=== PATIENT | female | born 1950 | race Caucasian/White ===

== ENCOUNTER → 2016-07-10 | Outpatient (CLI) | payer OTHER, BC ==
[~2016-07-10] MED LIST: ACET-1487 PO; ANAS1TAB19 PO; ASPI-232 PO; CALC-354 PO; CEPH500C2 PO; CRS10 PO; DRY EYE DROPS OPB; GLUC500C5 PO; HYDR-5688 PO; MULTTAB45 PO; OMEGCAP2 PO
--- NOTE | 2016-07-10 16:18 | MAMMOGRAPHY REPORT ---
BILATERAL DIGITAL SCREENING MAMMOGRAM WITH CAD: 07/10/2016 CLINICAL HISTORY: Routine screening examination. TECHNIQUE: Bilateral CC and MLO views were obtained. Current study was also evaluated with a Comput er Aided Detection (CAD) system. COMPARISON: Comparison is made to exams dated: 07/05/2015 mammogram, 07/01/2014 mammogram, 06/30/2013 mammogram, and 06/26/2012 mammogram - [facility]. BREAST COMPOSITION: The tissue of both breasts is heterogeneously dense, which may obscure small ma sses. FINDINGS: There is a possible cluster of microcalcifications in the 6:00 posterior right breast, fo r which additional spot magnification views are recommended. There is evidence of prior surgery within the left breast. No other suspicious mass, architectural d istortion or cluster of microcalcifications is seen. IMPRESSION: ACR BI-RADS CATEGORY 0: INCOMPLETE EVALUATION: NEED ADDITIONAL IMAGING EVALUATION The possible cluster of microcalcifications in the right 6:00 breast need additional evaluation. The patient will be called to schedule an appointment. Approximately 10% of breast cancers are not detected with mammography. A negative mammographic repor t should not delay biopsy if a clinically suggestive mass is present. Whitney Sewell M.D. ay/:07/10/2016 13:45:05 Insert Operator: Amelia GANN(R)(Jeff), [facility] letter sent: Addl Imaging 0 BI-RADS Code: ACR BI-RADS Category 0: Incomplete Evaluation: Need Additional Imaging Evaluation
== END | disposition home or self-care (01) ==
LOC: C.MAMM 10:57
PROVIDERS: ATTEND Internal Medicine Geriatric Medicine
DX: Z12.31 Encounter for screening mammogram for malignant neoplasm of breast (principal); R92.0 Mammographic microcalcification found on diagnostic imaging of breast

== ENCOUNTER → 2016-07-18 | Outpatient (CLI) | payer OTHER, BC ==
--- NOTE | 2016-07-18 12:47 | MAMMOGRAPHY REPORT ---
UNILATERAL RIGHT DIGITAL DIAGNOSTIC MAMMOGRAM: 07/18/2016 CLINICAL HISTORY: 66-year-old woman called back from screening mammography for a possible cluster of microcalcifications in the 6:00 right breast. Patient reported a history of previous benign surgic al excisional biopsy in the left breast. TECHNIQUE: Spot magnification right CC and ML views were obtained. COMPARISON: Comparison is made to exams dated: 07/10/2016 mammogram, 07/01/2014 mammogram, 06/26/2012 mammogram, 06/30/2013 mammogram, and 07/05/2015 mammogram - [facility]. BREAST COMPOSITION: The tissue of the right breast is heterogeneously dense, which may obscure smal l masses. FINDINGS: There is a 5 mm grouping of microcalcifications in the 6:00 posterior right breast that c ontains a larger coarser calcification and very faint amorphous punctate microcalcifications traveli ng in a linear distribution. The fainter calcifications may have been present on prior mammograms d ating back to , but the larger calcification is new. Therefore, the cluster is indetermina te, warranting further evaluation with tissue sampling. No obvious associated asymmetry, mass or ar chitectural distortion. No other suspicious cluster or grouping of microcalcifications is seen. IMPRESSION: ACR BI-RADS CATEGORY 4B: INTERMEDIATE SUSPICION FOR MALIGNANCY Right breast stereotactic guided biopsy is recommended for a cluster of coarse and faint punctate am orphous microcalcifications in the 6:00 right breast. These results and recommendations were discussed with the patient at the time of the exam. She tent atively scheduled the biopsy prior to leaving our department. Approximately 10% of breast cancers are not detected with mammography. A negative mammographic repor t should not delay biopsy if a clinically suggestive mass is present. Whitney Sewell M.D. ay/:07/18/2016 12:31:01 Sheet Rock Layer: Kindra GANN(Veena)(Jeff), [facility] letter sent: Abnormal 4/5 BI-RADS Code: ACR BI-RADS Category 4B: Intermediate Suspicion For Malignancy
== END | disposition home or self-care (01) ==
LOC: C.MAMM 10:52
PROVIDERS: ATTEND Internal Medicine Geriatric Medicine
DX: R92.0 Mammographic microcalcification found on diagnostic imaging of breast (principal)

== ENCOUNTER → 2016-08-15 | Outpatient (CLI) | payer OTHER, BC ==
--- NOTE | 2016-08-15 11:46 | Discharge Instructions ---
Discharge Instructions Procedure Procedure Date: Aug 15, 2016. Reason for visit: Right Calcifications. Discharge Discharge Date: Aug 15, 2016. Discharge Diagnosis: post right breast stereotactic guided biopsy Medications Restart Stopped Medication(s): May restart Aspirin tomorrow as long as not bleeding through bandages Instructions Activity Recommendations: Additional Limitations (see below) Return to School/Work: no limitations Recommended Home Diet: No Limitations Provider Instructions: ACTIVITY RECOMMENDATIONS: * No lifting, pushing, pulling or exercising the affected side for three days. RETURN TO SCHOOL/WORK: * You may return to work/school after the procedure, but do not perform any strenuous activities for 24 to 48 hours. MEDICATIONS: * Tylenol (two 325 mg) every four to six hours if needed for mild pain (if not allergic to Tylenol). DIET: * Resume previous diet. SPECIAL CARE INSTRUCTIONS: * Keep biopsy site dry for 24 hours. May shower after 24 hours, but do not soak (bathe) incision. * May remove Tegaderm (plastic patch) tomorrow AFTER showering. * Leave the steri-strips on for one week. Allow the steri-strips to fall off by themselves. If not off after one week, you may remove them. You may place a Bandaid crosswise over the strips, if desired. * Apply ice 10 minutes on and 10 minutes off as needed. * Wear a bra at bedtime to sleep more comfortably for 2-3 days. * Your referring physician should have the results after approximately 5 to 7 business days. * Call for unusual bleeding, fever, drainage, etc or if you have any questions call [phone] during normal business hours or after hours call Dr Sewell, . FOLLOW UP VISIT: Follow-up with Referring Physician as scheduled. Allergies Coded Allergies: Risedronate (Verified Allergy, Severe, NUMBNESS IN HANDS, 10/27/13) Fernando Spain Recommendations: Call your doctor if: * Temperature above 101 degrees * Pain not relieved by pain medicine ordered * There is increased drainage or redness from any incision * You have any unanswered questions or concerns. Your Doctors Instructions noted above were prepared by provider Whitney Sewell. Patient Signature Section: Patient Instructions Signature Page Nahomy Larson Patient (or Guardian) Signature/Date: I have read and understand the instructions given to me by my caregivers. Caregiver/RN/Doctor Signature/Date: The above-named patient and/or guardian has received patient instructions on this date. + Original Patient Signature Page (only) stays with chart. Please make copy for patient.
--- NOTE | 2016-08-15 12:37 | MAMMOGRAPHY REPORT ---
THIS REPORT HAS BEEN AMENDED. STEREOTACTIC GUIDED BIOPSY RIGHT BREAST: 08/15/2016 CLINICAL HISTORY: Indeterminate cluster of faint punctate and round microcalcifications in the 6:00 posterior right breast. Patient presents for stereotactic biopsy. COMPARISON: Comparison is made to exams dated: 07/18/2016 mammogram, 07/05/2015 mammogram, 07/01/2014 m ammogram, 06/30/2013 mammogram, and 06/26/2012 mammogram - [facility]. PATIENT CONSENT: After explaining the risks, benefits and alternatives of the procedure to the patie nt, informed consent was obtained both verbally and in writing. Specific risks include: Bleeding, i nfection, puncture of adjacent structure, nontarget biopsy, sampling error, metal allergy and medica tion reaction. PROCEDURE DESCRIPTION: A time-out was performed and the right breast was confirmed as the site of bi opsy. The patient was placed prone on the stereotactic biopsy table and the breast was placed in CC from below compression. A health outreach worker image was obtained that demonstrated the clustered microcalcificatio ns in question. They are amenable to sterotactic biopsy. Then +15 and -15 stereo pair images were obtained. The calcifications were targeted utilizing the coordinates obtained by the computer. The skin was prepped with Betadine. 1% Lidocaine with and without epinipherine was administered as loca l anesthesia. A small skin incision was made. Through the incision, the needle was inserted to the depth determined by the computer. 10 samples were obtained using a [employer] Seveniva 9-gauge vacuum-assist ed biopsy device. The specimen radiograph demonstrated several floor representative punctate microcalcific ations, therefore, a metallic marker was placed at the biopsy site. There was no immediate complicat ion. Hemostasis was achieved after several minutes of manual compression. The samples were sent to pathology in an appropriately labeled container. Postprocedure CC and ML views of the right breast were obtained. There is a new dumbbell-shaped met allic biopsy marker and no significant hematoma in the 6:00 posterior breast, at the site of the bio psied clustered microcalcifications in question. IMPRESSION: STEREOTACTIC GUIDED BIOPSY Status post right breast stereotactic guided biopsy of a cluster of indeterminate microcalcification s in the 6:00 axis. A biopsy marker clip was placed at the site. The patient will receive notification of the biopsy results from referring physician. Whitney Sewell M.D. ay/:08/15/2016 12:10:22 Environmental Protection Officer: Ksenia GANN(Veena)(M), [facility] AMENDMENT: 08/23/2016 Whitney Sewell M.D. 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 The p athology results are concordant with the imaging appearance. Given the relatively dense breasts and very faint nature of the biopsy proven DCIS, with consider further evaluation with a bilateral tran st MRI to assess extent of disease prior to definitive surgical management.
--- NOTE | 2016-08-15 12:37 | MAMMOGRAPHY REPORT ---
UNILATERAL RIGHT DIGITAL DIAGNOSTIC MAMMOGRAM: 08/15/2016 CLINICAL HISTORY: Status post right breast stereotactic biopsy of a cluster of faint punctate microc alcifications in the 6:00 posterior breast. Please refer to the report from right breast stereotactic biopsy performed at the same time for full detail. IMPRESSION: POST PROCEDURE IMAGING FOR MARKER PLACEMENT Please refer to the report from right breast stereotactic biopsy performed at the same time for full detail. Approximately 10% of breast cancers are not detected with mammography. A negative mammographic repor t should not delay biopsy if a clinically suggestive mass is present. Whitney Sewell M.D. ay/:08/15/2016 11:09:09 Acoustical Logging Engineer: Ksenia GANN(R)(M), [facility] BI-RADS Code: Post Procedure Imaging For Marker Placement
== END | disposition home or self-care (01) ==
LOC: C.MAMM 10:00
PROVIDERS: ATTEND Internal Medicine Geriatric Medicine
DX: D05.11 Intraductal carcinoma in situ of right breast (principal)

== ENCOUNTER → 2016-08-24 | Outpatient (CLI) | payer OTHER, BC ==
[2016-08-24 16:59] LABS: CREATININE 0.65 mg/dl (0.60-1.20)
== END | disposition home or self-care (01) ==
LOC: C.LABBC 13:29
PROVIDERS: ATTEND Internal Medicine Geriatric Medicine
DX: Z00.00 Encounter for general adult medical examination without abnormal findings (principal)

== ENCOUNTER → 2016-08-30 | Outpatient (CLI) | payer OTHER, BC ==
[~2016-08-30] MED LIST changes: +GADAVIST IV PRN
--- NOTE | 2016-09-03 13:55 | MAMMOGRAPHY REPORT ---
BREAST MRI OF BOTH BREASTS : 08/30/2016 CLINICAL HISTORY: Recent stereotactic biopsy of right 6:00 breast calcifications which yielded DCIS. COMPARISON: Comparison is made to exams dated: 08/15/2016 mammogram, 07/05/2015 mammogram, 07/01/2014 m ammogram, 06/30/2013 mammogram, and 06/26/2012 mammogram - [facility]. Technique: The patient was placed prone in a dedicated breast imaging coil. Precontrast axial T1-we ighted, axial T2-weighted fat saturation, and axial T1-weighted fat saturation images were obtained. After the administration of Gadavist IV contrast, sequential T1-weighted fat saturation images wer e obtained. Subtraction images were obtained of the dynamic contrast enhanced sequences, and 3-D re formations were performed. The zhouwu software was used for kinetic analysis. Findings: Right breast: There is mild background parenchymal enhancement. Susceptibility artifact is seen in the right 6:00 breast from a biopsy marker clip from recent stereotactic biopsy which yielded DCIS. There is mini mal enhancement abutting the biopsy marker clip measuring approximately 4 mm, with mild enhancement extending slightly superior to the biopsy site along the biopsy tract. Given that the enhancement f ollows the biopsy tract and is not a ductal distribution, it likely represents postbiopsy changes. (series 41999 image 83). The remainder of the right breast demonstrates no suspicious enhancing mas ses or areas of abnormal non-mass enhancement. Left breast: There is mild background parenchymal enhancement. There is an enhancing 9 mm mass seen within the left breast at approximately 8:00 anteriorly, which demonstrates corresponding T2 hyperi ntensity. The mass demonstrates benign type persistent kinetics. In retrospect, the mass is stable on prior CC mammogram views dating back to 2006, and given the long-term stability, the mass is nyasia ign. The remainder of the left breast is negative, without suspicious enhancing masses or areas of abnormal non-mass enhancement. There is no evidence of axillary adenopathy. The chest wall structures are negative. There is a ci rcumscribed T2 hyperintense 3.2 x 3.0 cm mass in the left upper abdomen, which does not clearly demo nstrate enhancement (series 4 image 57). This may represent a hepatic cyst although the area is not well-visualized on this exam and the lesion is not clearly seen to be within the liver. A few othe r smaller T2 hyperintense, nonenhancing masses are also seen within the right upper abdomen, one ed suring 11 mm and one measuring 7 mm, which likely represent hepatic cysts (series 4 image 57 and 54) . Recommend abdominal ultrasound for further evaluation. IMPRESSION: ACR BI-RADS CATEGORY 6: KNOWN BIOPSY PROVEN MALIGNANCY 1. Minimal enhancement at the biopsy site and extending slightly superiorly along the biopsy tract, at the site of recent biopsy in the right 6:00 breast which yielded DCIS. Given that the enhanceme nt is located along the biopsy tract, it likely represents postbiopsy changes. Surgical excision is recommended. 2. The remainder of both breasts demonstrate no evidence of malignancy. Enhancing 9 mm mass within the left 8:00 anterior breast, which is stable on mammograms dating back to 2006 and is therefore b enign. 3. Cystic-appearing 3.2 cm mass in the left upper abdomen, which could represent a hepatic cyst alt roger is not well evaluated on this exam and is not clearly seen to be within the liver. A few othe r smaller similar appearing masses are seen within the right abdomen. Recommend additional imaging evaluation with abdominal ultrasound. Kesha Duarte M.D. ah/:08/31/2016 16:44:07 Boy'S Adviser: head cd reactor operator, [facility] letter sent: Birad 6 BI-RADS Code: ACR BI-RADS Category 6: Known Biopsy Proven Malignancy
== END | disposition home or self-care (01) ==
LOC: C.MRI 15:01
PROVIDERS: ATTEND Internal Medicine Geriatric Medicine
DX: D05.10 Intraductal carcinoma in situ of unspecified breast (principal); R92.8 Other abnormal and inconclusive findings on diagnostic imaging of breast; N63 Unspecified lump in breast; R93.5 Abnormal findings on diagnostic imaging of other abdominal regions, including retroperitoneum

== ENCOUNTER → 2016-09-05 | Outpatient (CLI) | payer OTHER, BC ==
[~2016-09-05] MED LIST changes: -GADAVIST IV PRN
--- NOTE | 2016-09-05 11:38 | DIAGNOSTIC IMAGING REPORT ---
ABDOMINAL ULTRASOUND, RIGHT UPPER QUADRANT HISTORY: Abnormal breast MRI. Evaluate for hepatic lesion.. COMPARISON: Breast MRI 08/30/2016. FINDINGS: Pancreas: The pancreas demonstrates a normal echotexture. Liver: There are few scattered hepatic cysts. Dominant cyst within the left hepatic lobe measures 3.1 cm and demonstrates a septation. Largest right hepatic lobe cyst measures 1.5 cm. Gallbladder: No gallbladder wall thickening. No gallstones. CBD: 5 mm. Right kidney: No hydronephrosis. IMPRESSION: Hepatic cysts. Electronically signed by: Tj Dominguez M.D. 09/05/2016 11:37 AM Dictated Date/Time: 09/05/2016 11:34 AM
== END | disposition home or self-care (01) ==
LOC: C.ULTR 10:19
PROVIDERS: ATTEND Internal Medicine Geriatric Medicine
DX: R93.8 Abnormal findings on diagnostic imaging of other specified body structures (principal); K76.89 Other specified diseases of liver

== ENCOUNTER 2016-09-24 08:02 | Observation (INO) | payer OTHER, BC ==
--- NOTE | 2016-09-10 12:10 | PAT Medication Instructions ---
Service Date Sep 10, 2016. Current Home Medication List Acetaminophen (Tylenol Arthritis Ext Rel), 1,300 MG PO DAILY PRN for Pain Aspirin (Aspir-81), 81 MG PO QPM Calcium Carbonate-Cholecalcife (Caltrate 600+D), 1 TABS PO BID Glucosamine-Chondroitin (Glucosamine-Chondroitin D), 1 CAP PO BID Multiple Vitamin (Multiple Vitamin), 1 TAB PO QAM Alicia-3 Fatty Acids (Fish Oil), 1,000 MG PO BID Rosuvastatin Calcium (Crestor), 10 MG PO QPM [Dry Eye Drops ], 1 DROP OPB QAM Medication Instructions For Your Scheduled Surgery - Hold the following medications 2 weeks prior to surgery: Alicia-3 Fatty Acids (Fish Oil), 1,000 MG PO BID Glucosamine-Chondroitin (Glucosamine-Chondroitin D), 1 CAP PO BID - Hold the following medications the morning of surgery: Multiple Vitamin (Multiple Vitamin), 1 TAB PO QAM Calcium Carbonate-Cholecalcife (Caltrate 600+D), 1 TABS PO BID - Take the following medications the morning of surgery with a sip of water OTHERWISE NOTHING TO EAT OR DRINK AFTER MIDNIGHT: [Dry Eye Drops ], 1 DROP OPB QAM Acetaminophen (Tylenol Arthritis Ext Rel), 1,300 MG PO DAILY PRN for Pain (may take if needed up to 4 hours prior to surgery) - Take the following medications as scheduled the night before surgery: Aspirin (Aspir-81), 81 MG PO QPM Acetaminophen (Tylenol Arthritis Ext Rel), 1,300 MG PO DAILY PRN for Pain Rosuvastatin Calcium (Crestor), 10 MG PO QPM Calcium Carbonate-Cholecalcife (Caltrate 600+D), 1 TABS PO BID If you have any questions please call us at [phone] or [phone] or [phone]
[2016-09-10 12:42] LABS: BASO % 0.7 %; BASO ABS # 0.04 K/uL (0-0.2); COMPLETE YES; EOS % 2.9 %; HEMATOCRIT 40.7 % (37-47); IG% 0.2 %; LYMPH % 22.7 %; LYMPH ABS # 1.35 K/uL (1.2-3.4); MEAN CELL VOLUME 88.1 fL (80-100); MEAN CORPUSCULAR HEMOGLOBIN 31.8 pg (25-34); MEAN CORPUSCULAR HGB CONC 36.1 g/dl (32-36); MEAN PLATELET VOLUME 8.9 fL (7.4-10.4); MONO % 8.9 %; NEUT % 64.6 %; PLATELET COUNT 253 K/uL (130-400); RED BLOOD COUNT 4.62 M/uL (4.2-5.4); WHITE BLOOD COUNT 5.94 K/uL (4.8-10.8)
[2016-09-10 12:54] LABS: BUN/CREATININE RATIO 29.3 (10-20); CALCIUM 9.6 mg/dl (8.5-10.1); CREATININE 0.73 mg/dl (0.60-1.20); POTASSIUM 4.4 mmol/L (3.5-5.1)
[2016-09-24] VITALS (7 sets, daily range): BP systolic 131–158; BP diastolic 66–91; PULSE 61–82; TEMP 36.4–36.9; O2SAT 94–100; Ht 154.9 cm; Wt 72.2 kg
[~2016-09-24] VITALS: Ht 154.9 cm; Wt 72.2 kg
[~2016-09-24 08:02] MED LIST changes: -ANAS1TAB19 PO; +CEFAZOLIN 2000 MG/60 ML D5W IV SCH; -CEPH500C2 PO; -HYDR-5688 PO; +LACTATED RINGER'S 1000ML 1,000 ML IV SCH
[2016-09-24] MEDS ORDERED: FENTANYL CITRATE INJ 50 MCG/1 ML 2 ML VIAL ONE (08:49)
[2016-09-24] MEDS ORDERED: MEPERIDINE HCL 25 MG/ML CARP IV PRN (09:45)
[2016-09-24] MEDS ORDERED: HYDROmorphone INJ 2 MG/ML SYR/VIAL IV PRN (09:45)
[2016-09-24] MEDS ORDERED: EpHEDrine SULFATE INJ 50 MG/ML AMP IV PRN (09:45)
[2016-09-24] MEDS ORDERED: PHENYLEPHRINE 100MCG/ML 5ML SYR IV PRN (09:45)
[2016-09-24] MEDS ORDERED: FENTANYL CITRATE INJ 50 MCG/1 ML 2 ML VIAL IV PRN (09:45)
[2016-09-24] MEDS ORDERED: NALOXONE HCL 0.4 MG/1 ML VIAL/CARP IV PRN (09:45)
[2016-09-24] MEDS ORDERED: ONDANSETRON INJ 2 MG/ML 2 ML VIAL IV PRN ×2 (09:45→12:30)
[2016-09-24] MEDS ORDERED: FLUMAZENIL 0.1 MG/1 ML 10 ML VIAL IV PRN (09:45)
[2016-09-24] MEDS ORDERED: ATROPINE SULFATE 0.1 MG/ML 5ML SYR IV PRN (09:45)
[2016-09-24] MEDS ORDERED: LABETALOL HCL IV 5 MG/ML 20ML IV PRN (09:45)
--- NOTE | 2016-09-24 10:25 | DIAGNOSTIC IMAGING REPORT ---
LYMPHOSCINTIGRAPHY CLINICAL HISTORY: Right breast cancer. PROCEDURE: Using standard sterile technique, 4 intradermal periareolar and one deep injection of 0.522 mCi of Lymphoseek was placed in the right breast. The patient tolerated the procedure well. There were no immediate complications. The patient was subsequently transported to the surgical suite. No imaging was obtained at the referring physician's request. IMPRESSION: Injection of 0.522 mCi of Lymphoseek in the right breast. Electronically signed by: Ramon Hastings M.D. 09/24/2016 10:23 AM Dictated Date/Time: 09/24/2016 10:19 AM
[2016-09-24] MEDS ORDERED: MIDAZOLAM HCL 1 MG/ML 2ML VIAL ONE (10:27)
[2016-09-24] MEDS ORDERED: BUPIVACAINE 0.5 % 5 MG/1 ML MPF 30ML VIAL ONE (10:53)
[2016-09-24] MEDS ORDERED: SCOPOLAMINE 1.5 MG TDSY TD ONE (10:57)
[2016-09-24] MEDS ORDERED: ONDANSETRON INJ 2 MG/ML 2 ML VIAL ONE (10:58)
[2016-09-24] MEDS ORDERED: LIDOCAINE HCL 2% 2 ML VIAL (20MG/ML) ONE (10:58)
[2016-09-24] MEDS ORDERED: DEXAMETHASONE SOD INJ 4 MG/ML VIAL ONE ×2 (10:58→11:22)
[2016-09-24] MEDS ORDERED: PROPOFOL IV EMULSION 10 MG/ML 20 ML VIAL IV ONE (10:58)
[2016-09-24] MEDS ORDERED: NURSING VERBAL MED ORDER ONE (11:00)
--- NOTE | 2016-09-24 11:03 | History & Physical Bridge Note ---
H&P Re-Evaluation Bridge Note: I have examined the patient, reviewed the History & Physical and in the interval since the performance of the History & Physical I have noted the following changes of clinical significance: No changes noted
--- NOTE | 2016-09-24 12:23 | [facility] Post Operative Brief Note ---
Immediate Operative Summary Operative Date Sep 24, 2016. Pre-Operative Diagnosis Ductal Carcinoma in situ. Post-Operative Diagnosis same Surgeon Dr. Welch Grill Associate Surgeon(s) Nimesh Mejia-PAC Specimens A: Right Breast Tissue, Needle is inferior, short silk superior and long silk is lateral. Methylene Blue is Deep. B:Right Breast: Additional Superior/Deep tissue, Methylene Blue is new margin C:Right Breast: Addtional Inferior /deep tissue. Methylene blue is new margins D:Right Breast: Additional Superior/Retroareolar:methylene blue is new margin
[2016-09-24] MEDS ORDERED: LACTATED RINGER'S 1000ML 1,000 ML IV SCH (12:26)
--- NOTE | 2016-09-24 12:26 | [facility] Post Operative Brief Note ---
Immediate Operative Summary Operative Date Sep 24, 2016. Pre-Operative Diagnosis Ductal Carcinoma in situ. Post-Operative Diagnosis same Procedure(s) Performed needle loc Rt partial mastectomy with [place] [address] bx Surgeon Dr. Welch Supervisor Dog License Officer Surgeon(s) Nimesh Mejia-PAC Estimated Blood Loss 10 cc Findings SLN negative on frozen Specimens A: Right Breast Tissue, Needle is inferior, short silk superior and long silk is lateral. Methylene Blue is Deep. B:Right Breast: Additional Superior/Deep tissue, Methylene Blue is new margin C:Right Breast: Addtional Inferior /deep tissue. Methylene blue is new margins D:Right Breast: Additional Superior/Retroareolar:methylene blue is new margin Anesthesia gen/ LMA Complication(s) None Disposition Recovery Room / PACU
[2016-09-24] MEDS ORDERED: MoRPHine SULFATE 2 MG/ML CARP IV PRN (12:30)
[2016-09-24] MEDS ORDERED: PROMETHAZINE HCL INJ 25 MG in SODIUM CHLORIDE 0.9% 50ML 50 ML IV PRN (12:30)
[2016-09-24] MEDS ORDERED: HYDROCODONE/ACETAMOPHEN 5/325MG TAB PO PRN ×2 (12:30)
[2016-09-24] MEDS ORDERED: MoRPHine SULFATE 4 MG/ML 1 ML CARP\\VIAL IV PRN (12:30)
[2016-09-24] MEDS ORDERED: IV FLUIDS COMPLETED PRN (12:45)
--- NOTE | 2016-09-24 12:46 | MAMMOGRAPHY REPORT ---
SPECIMEN RIGHT BREAST: 09/24/2016 CLINICAL HISTORY: Biopsy proven DCIS in the 6:00 right breast. Patient presents for preoperative ne edle and wire localization prior to lumpectomy. Please refer to the report from right breast needle localization performed at the same time for full detail. IMPRESSION: SPECIMEN Please refer to the report from right breast needle localization performed at the same time for full detail. Whitney Sewell M.D. ay/:09/24/2016 08:56:31 Leaded Glass Installer: Coretta GANN(Veena)(M), [facility]
--- NOTE | 2016-09-24 12:54 | Anesthesiology Progress Note ---
Anesthesia Post Op Note Date & Time Sep 24, 2016 at 12:53 Vital Signs Pain Intensity: 0 Vital Signs Past 12 Hours Date Time Temp Pulse Resp B/P Pulse Ox O2 Delivery O2 Flow Rate FiO2 09/24/16 12:43 72 25 09/24/16 12:43 69 25 94 09/24/16 12:43 72 25 09/24/16 12:43 69 25 94 09/24/16 12:40 140/109 09/24/16 12:40 140/109 09/24/16 12:38 70 19 100 09/24/16 12:38 68 19 09/24/16 12:38 68 19 09/24/16 12:38 70 19 100 09/24/16 12:35 142/83 09/24/16 12:35 142/83 09/24/16 12:33 71 17 95 09/24/16 12:33 71 17 95 09/24/16 12:33 71 17 09/24/16 12:33 71 17 09/24/16 12:30 142/78 09/24/16 12:30 142/78 09/24/16 12:28 71 12 09/24/16 12:28 71 12 09/24/16 12:28 71 12 100 09/24/16 12:28 71 12 100 09/24/16 12:25 146/80 09/24/16 12:25 146/80 09/24/16 12:23 75 14 151/73 100 09/24/16 12:23 74 14 09/24/16 12:23 75 14 151/73 100 09/24/16 12:23 36.0 72 20 151/73 100 Mask 10 09/24/16 12:23 74 14 09/24/16 10:18 36.6 68 20 142/66 96 Room Air Notes Mental Status: alert / awake / arousable, participated in evaluation Pt Amnestic to Procedure: Yes Nausea / Vomiting: adequately controlled Pain: adequately controlled Airway Patency, RR, SpO2: stable & adequate BP & HR: stable & adequate Hydration State: stable & adequate Anesthetic Complications: no major complications apparent
[2016-09-24] MEDS ORDERED: PROMETHAZINE HCL INJ 12.5 MG in SODIUM CHLORIDE 0.9% 50ML 50 ML IV PRN (13:15)
--- NOTE | 2016-09-24 16:25 | MAMMOGRAPHY REPORT ---
NEEDLE LOCALIZATION: 09/24/2016 CLINICAL HISTORY: Biopsy-proven right breast DCIS. Patient presents for preoperative needle and wir e localization prior to surgical excision. COMPARISON: Comparison is made to exams dated: 08/30/2016 breast MRI, 08/15/2016 stereotactic biopsy, 08/15/2016 mammogram, 07/18/2016 mammogram, 07/10/2016 mammogram, and 07/05/2015 mammogram - [facility]. PATIENT CONSENT: The risks of the procedure were explained to the patient and informed consent was o btained. The patient denied allergy to lidocaine. She also denied eating or drinking anything this morning that would preclude anesthesia. PROCEDURE DESCRIPTION: First postprocedure mammograms obtained after stereotactic biopsy dated 08/15 were reviewed. The metallic biopsy marker clip in the 6:00 posterior right breast is the inte nded target for preoperative localization. With the patient standing, the right breast was placed i n CC from below compression. The biopsy marker clip was targeted using an alpha numeric grid. The skin was cleansed with alcohol. 1% buffered lidocaine without epinephrine was administered as local anesthesia. A 5 cm Goldsmith 2 needle and wire combination was inserted into the breast. The depth of the needle and wire were assessed in LM positioning and fine adjustments were made. Finally, the wire was locked in place, and the biopsy marker clip is located at/just anterior to the hub of the needle. The patient tolerated the procedure well and there was no immediate competition. She was s ent to the operating room in satisfactory condition. The specimen radiograph demonstrates the localizing needle and wire, the dumbbell shaped biopsy siri er clip, and a few scattered punctate microcalcifications, compatible with successful preoperative l ocalization and subsequent surgical excision. Final pathology is pending. IMPRESSION: NEEDLE LOCALIZATION Status post successful preoperative needle wire localization of biopsy-proven DCIS in the right 6:00 posterior breast. The imaged specimen includes the intended abnormality. The patient will receive notification of the final pathology results from her referring physician. Whitney Sewell M.D. ay/:09/24/2016 12:55:03 Attending Technologist: Kindra Luong RT(R)(M), [facility] Ms Sql Developer: Coretta Rueda RT(R)(M), [facility]
--- NOTE | 2016-09-24 17:05 | Medical Consult ---
Consultation Date of Consultation: Sep 24, 2016. Attending Physician: Moustapha Welch M.D. 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 Surgery was performed by Dr. Welch on 09.24.16 without complications. Hospitalist service was consulted for medical management. Patient denied any SOB, chest pain, fevers, dizziness. pos-top. Patient has a hx of HLD and osteoporosis. She states she is compliant with all medications and PCP appointment. Past Medical/Surgical History Ductal Carcinoma In Situ HLD Osteoporosis Social History Smoking Status: Never Smoker Smokeless Tobacco Use: No Alcohol Use: occasionally Drug Use: none Marital Status: Housing Status: lives with family Allergies Coded Allergies: Risedronate (Verified Allergy, Severe, NUMBNESS IN HANDS, 09/24/16) Current Inpatient Medications Current Inpatient Medications Medications (Trade) Dose Ordered Sig/Rai Route Start Time Stop Time Status Last Admin Dose Admin Cefazolin Sodium 60 ml @ 100 mls/hr PREOP IV 09/24/16 06:00 09/24/16 18:00 09/24/16 11:04 100 MLS/HR Lactated Ringer's (Lr 1000ml) 1,000 ml @ 15 mls/hr Q24H IV 09/24/16 06:00 09/25/16 05:59 09/24/16 10:20 15 MLS/HR Rosuvastatin Calcium 10 mg 10 mg QPM PO 09/24/16 21:00 10/24/16 20:59 Lactated Ringer's 1,000 ml @ 50 mls/hr Q20H IV 09/24/16 12:26 10/24/16 12:25 09/24/16 13:30 50 MLS/HR Cefazolin Sodium/ Dextrose (Ancef Iv/D5 50ml) 55 ml @ 100 mls/hr Q8H IV 09/24/16 19:00 09/25/16 18:59 Acetaminophen/ Hydrocodone Bitart (Home 5/325 Tab) 1 tab Q4 PRN PO 09/24/16 12:30 10/08/16 12:29 Acetaminophen/ Hydrocodone Bitart (Home 5/325 Tab) 2 tab Q4 PRN PO 09/24/16 12:30 10/08/16 12:29 Morphine Sulfate (MoRPHine SULFATE INJ) 2 mg Q4H PRN IV 09/24/16 12:30 10/08/16 12:29 Morphine Sulfate 4 mg 4 mg Q4H PRN IV 09/24/16 12:30 10/08/16 12:29 Promethazine HCl/ Sodium Chloride (Phenergan Inj/ Nss 50ml) 51 ml @ 204 mls/hr Q6H PRN IV 09/24/16 12:30 10/24/16 12:29 Ondansetron HCl (Zofran Inj) 4 mg Q6H PRN IV 09/24/16 12:30 10/24/16 12:29 Ketorolac Tromethamine (Toradol Inj) 15 mg Q6H IV. 09/24/16 14:30 09/24/16 23:00 Miscellaneous 1 ea 1 ea PRN PRN N/A 09/24/16 12:45 09/24/17 12:44 Promethazine HCl/ Sodium Chloride (Phenergan Inj/ Nss 50ml) 50.5 ml @ 204 mls/hr Q6H PRN IV 09/24/16 13:15 10/24/16 13:14 Review of Systems Constitutional: No chills, No fever Eyes: No worsening of vision ENT: No hearing loss Respiratory: No cough, No shortness of breath, No sputum Cardiovascular: No chest pain, No orthopnea Abdomen: No pain Genitourinary - Female: No dysuria Neurologic: No memory loss Psychiatric: No depression symptoms Endocrine: No fatigue Hematologic / Lymphatic: No abnormal bleeding/bruising Integumentary: No itch, No rash Allergic / Immunologic: No environmental allergies Physical Exam Date Time Temp Pulse Resp B/P Pulse Ox O2 Delivery O2 Flow Rate FiO2 09/24/16 15:30 36.4 71 18 144/86 96 Nasal Cannula 2.0 09/24/16 14:35 36.5 69 19 134/82 97 Room Air 09/24/16 14:06 36.9 70 17 147/91 99 Nasal Cannula 2.0 09/24/16 13:30 Nasal Cannula 09/24/16 13:30 Nasal Cannula 2.0 09/24/16 13:30 36.4 61 12 158/90 100 Nasal Cannula 2.0 09/24/16 13:15 147/83 09/24/16 13:14 62 16 100 09/24/16 13:14 63 16 09/24/16 13:10 158/85 09/24/16 13:09 61 21 100 09/24/16 13:09 63 21 09/24/16 13:05 154/82 09/24/16 13:04 65 21 100 09/24/16 13:04 66 21 09/24/16 13:01 36.6 65 19 158/85 100 Nasal Cannula 2 09/24/16 13:00 156/87 09/24/16 12:59 65 15 100 09/24/16 12:59 66 15 09/24/16 12:55 148/87 09/24/16 12:54 67 17 09/24/16 12:54 67 17 100 09/24/16 12:50 159/82 09/24/16 12:49 64 17 94 09/24/16 12:49 66 17 09/24/16 12:46 155/105 09/24/16 12:44 70 17 09/24/16 12:44 66 17 90 09/24/16 12:43 72 25 09/24/16 12:43 69 25 94 09/24/16 12:43 72 25 09/24/16 12:43 69 25 94 09/24/16 12:40 140/109 09/24/16 12:40 140/109 09/24/16 12:38 70 19 100 09/24/16 12:38 68 19 09/24/16 12:38 68 19 09/24/16 12:38 70 19 100 09/24/16 12:35 142/83 09/24/16 12:35 142/83 09/24/16 12:33 71 17 95 09/24/16 12:33 71 17 95 09/24/16 12:33 71 17 09/24/16 12:33 71 17 09/24/16 12:30 142/78 09/24/16 12:30 142/78 09/24/16 12:28 71 12 09/24/16 12:28 71 12 09/24/16 12:28 71 12 100 09/24/16 12:28 71 12 100 09/24/16 12:25 146/80 09/24/16 12:25 146/80 09/24/16 12:23 75 14 151/73 100 09/24/16 12:23 74 14 09/24/16 12:23 75 14 151/73 100 09/24/16 12:23 36.0 72 20 151/73 100 Mask 10 09/24/16 12:23 74 14 09/24/16 10:18 36.6 68 20 142/66 96 Room Air General Appearance: WD/WN, no apparent distress Head: normocephalic Eyes: normal inspection ENT: normal ENT inspection Neck: supple Respiratory/Chest: chest non-tender, lungs clear, + pertinent finding (no swelling or erythema, in axilary region) Cardiovascular: regular rate, rhythm, no edema, no gallop Abdomen/GI: normal bowel sounds, non tender Back: normal inspection Extremities/Musculoskelatal: normal inspection Neurologic/Psych: no motor/sensory deficits, alert, + abnormal cerebellar tests Skin: normal color, warm/dry, no rash Laboratory Results Test 09/10/16 12:25 White Blood Count 5.94 Red Blood Count 4.62 Hemoglobin 14.7 Hematocrit 40.7 Mean Corpuscular Volume 88.1 Mean Corpuscular Hemoglobin 31.8 Mean Corpuscular Hemoglobin Concent 36.1 Platelet Count 253 Mean Platelet Volume 8.9 Neutrophils (%) (Auto) 64.6 Lymphocytes (%) (Auto) 22.7 Monocytes (%) (Auto) 8.9 Eosinophils (%) (Auto) 2.9 Basophils (%) (Auto) 0.7 Neutrophils # (Auto) 3.84 Lymphocytes # (Auto) 1.35 Monocytes # (Auto) 0.53 Eosinophils # (Auto) 0.17 Basophils # (Auto) 0.04 RDW Standard Deviation 38.8 RDW Coefficient of Variation 12.2 Immature Granulocyte % (Auto) 0.2 Immature Granulocyte # (Auto) 0.01 Sodium Level 141 Potassium Level 4.4 Chloride Level 106 Carbon Dioxide Level 27 Anion Gap 8.0 Blood Urea Nitrogen 21 Creatinine 0.73 Est Creatinine Clear Calc Drug Dose 67.0 Estimated GFR () 98.1 Estimated GFR (Non- 84.6 BUN/Creatinine Ratio 29.3 Random Glucose 97 Calcium Level 9.6 Assessment & Plan Patient is a 66 y.o.F with PMHx of DCIS who presented to the hospital for elective partial mastectomy. Hospitalist service was consulted for medical management. POD#0 s/p partial mastectomy with sentinel node biopsy with Hx of DCIS - patient admitted to Dr. Osborne service - pain control with tordol and morphine - check post op CBC in am HLD - continue Crestor Osteoporosis - noted PPx- ambulation Full Code Thank you for the consultation and we will follow
--- NOTE | 2016-09-24 17:41 | OPERATIVE REPORT ---
DATE OF OPERATION: 09/24/2016 NAME OF OPERATION: Needle localization right partial mastectomy with sentinel lymph node biopsy. PREOPERATIVE DIAGNOSIS: Ductal carcinoma in situ, right breast. POSTOPERATIVE DIAGNOSIS: Same. STAFF SURGEON: Moustapha Welch MD MANAGER RECOVERY: Nimesh Mejia PA-C ANESTHESIA: General LMA. DESCRIPTION OF PROCEDURE: The patient was brought in the operating room and placed on the operating table in supine position. Her right arm was extended on an arm board. She had a needle placed in the 6 o'clock inferior position of the right breast at the [facility]. Initially after appropriate prepping and draping, incision was made in the right axilla using the Neoprobe identifying a very deep right axillary node which was sent for frozen section and found to be negative. During the frozen section, we did proceed with right partial mastectomy by making a transverse incision inferiorly in the right breast around the needle carrying dissection down around the needle excising the tissue. Tissue was marked with the needle inferior, short silk suture superior, long silk suture lateral and methylene blue deep. We also placed this into the Faxitron and found that the clip was centrally located in the tissue. At this point, I took additional superior/deep tissue with methylene blue on the new margin. This was actually down to the muscle. I took additional inferior tissue which was also marked with methylene blue on the new margin which was down to the muscle and then I took additional superior retroareolar tissue with methylene blue marked on the new margin. The clips were placed at the area of the needle tip and then the deep tissue was reapproximated using 2-0 plain catgut suture. The axilla was reapproximated using 2-0 plain catgut suture for the deep tissue and then in the axilla, the skin reapproximated using 4-0 nylon suture. In the breast, the skin was reapproximated using subcuticular 4-0 Monocryl with Steri-Strips. The patient was transferred to recovery room in stable condition. I attest to the content of the Intraoperative Record and any orders documented therein. Any exceptio ns are noted below.
[2016-09-24] MEDS: CEFAZOLIN IV 1,000 MG in DEXTROSE 5% 50ML 50 ML IV SCH (20:12)
[2016-09-24] MEDS: KETOROLAC TROMETHAMINE 15 MG/ML VIAL IV. SCH (20:12)
[2016-09-24] MEDS ORDERED: ROSUVASTATIN CALCIUM 10 MG TAB PO SCH (21:00)
[2016-09-25 00:30] VITALS: BP 125/75; PULSE 77; TEMP 36.7; O2SAT 95
[2016-09-25] MEDS: CEFAZOLIN IV 1,000 MG in DEXTROSE 5% 50ML 50 ML IV SCH (03:05)
[2016-09-25 03:59] VITALS: BP 116/68; PULSE 80; TEMP 36.7; O2SAT 95
--- NOTE | 2016-09-25 06:08 | Discharge Instructions ---
Discharge Instructions Date of Service Sep 25, 2016. Admission Reason for Admission: Right Breast Dcis W/Hosp Loc & Lymph Inj Discharge Discharge Diagnosis / Problem: ductal carcinoma insitu Rt breast Discharge Goals Goal(s): Decrease discomfort, Improve function, Improve disease control Activity Recommendations Activity Limitations: as noted below Lifting Limitations: no more than 10 pounds (for at least 2 weeks) Exercise/Sports Limitations: until after follow-up appointment May Resume Sexual Activity: when tolerated Shower/Bathe: keep incision dry (for 2 days , then you may shower) Driving or Machine Use: after 1 week SPECIAL CARE INSTRUCTIONS: * Cover incisions and change daily for comfort/drainage. * Leave steri strips in place * May use ibuprofen for pain as tolerated. * Expect some swelling and bruising. Call your doctor if: * Temperature above 101 degrees * Pain not relieved by pain medicine ordered * There is increased drainage or redness from any incision * You have any unanswered questions or concerns [phone]. FOLLOW UP VISIT: If not already scheduled, please call the office for a follow-up visit. for next week- some suture removal OFFICE PHONE NUMBER: Dr. Welch Office . Current Hospital Diet Patient's current hospital diet: Regular Diet Discharge Diet Recommended Diet: Regular Diet Procedures Procedures Performed: needle loc Rt partial mastectomy with [place] LN bx Pending Studies Studies pending at discharge: no Medical Emergencies . Who to Call and When: Medical Emergencies: If at any time you feel your situation is an emergency, please call 911 immediately. . Non-Emergent Contact Non-Emergency issues call your: Primary Care Provider, Surgeon . "Provider Documentation" section prepared by Moustapha Welch. VTE Core Measure Inpt VTE Proph given/why not?: SCD's
[2016-09-25] MEDS ORDERED: HYDR-5688 PO (06:09)
[2016-09-25] MEDS ORDERED: CEPH500C2 PO (06:09)
[2016-09-25 06:59] VITALS: BP 130/82; PULSE 92; TEMP 36.9; O2SAT 94
--- NOTE | 2016-09-25 07:23 | DISCHARGE SUMMARY ---
PRINCIPAL DIAGNOSIS: Ductal carcinoma, right breast. PROCEDURES: The patient underwent right partial mastectomy with sentinel lymph node biopsy. HISTORY OF PRESENT ILLNESS: The patient is a 66-year-old female who underwent mammography and core biopsy of the right breast showing ductal carcinoma in situ. HOSPITAL COURSE: The patient was brought into the hospital on 09/24/2016 where she underwent needle localization right partial mastectomy with sentinel lymph node biopsy for diagnosis of ductal carcinoma in situ. She has done very well overnight and is felt stable for discharge home today to be followed in the surgical office within 1 week.
[2017-01-15] MEDS ORDERED: ANAS1TAB19 PO (15:07)
== END 2016-09-25 09:54 | disposition home or self-care (01) ==
LOC: ENRESERVTM → ENRESERVDT → C.ACU 08:02 → C.MSW 12:30
PROVIDERS: ADMIT Surgery; ATTEND Surgery
DX: D05.10 Intraductal carcinoma in situ of unspecified breast (principal); F41.9 Anxiety disorder, unspecified; E78.5 Hyperlipidemia, unspecified; E83.52 Hypercalcemia; Z87.19 Personal history of other diseases of the digestive system; M81.0 Age-related osteoporosis without current pathological fracture; Z82.3 Family history of stroke; Z82.49 Family history of ischemic heart disease and other diseases of the circulatory system; Z79.82 Long term (current) use of aspirin

== ENCOUNTER → 2017-01-15 | Outpatient (CLI) | payer OTHER, BC ==
[~2017-01-15] MED LIST changes: +ANAS1TAB19 PO; -CEFAZOLIN 2000 MG/60 ML D5W IV SCH; -LACTATED RINGER'S 1000ML 1,000 ML IV SCH
[2017-01-15 14:57] VITALS: BP 127/85; PULSE 71; TEMP 36.9; O2SAT 95
--- NOTE | 2017-01-15 16:17 | Radiation Oncology Follow-Up ---
Radiation Oncology Follow-Up Date of Visit Jan 15, 2017. (Rizwana Thomas PA-C) Reason For Visit One-month follow-up and cancer survivorship care plan (Rizwana Thomas PA-C) Radiation Completion Date 12/17/16 (Rizwana Thomas PA-C) Diagnosis (1) Ductal carcinoma in situ (DCIS) of right breast Status: Resolved Stage: 0 Permanent Comment: Abnormal right breast mammogram 07/10/2016 revealing calcifications Status post stereotactic biopsy 08/15/2016 DCIS grade 2 Estrogen receptor positive and progesterone receptor positive Status post partial mastectomy and sentinel lymph node biopsy 09/24/2016 Stage pTis [id number] Status post completion of radiation therapy 12/17/2016. She received 5130 cGy utilizing hypo-fractionation. Last Edited By: Rizwana Thomas on Dec 31, 2016 10:43 (Rizwana Thomas PA-C) History of Present Illness Ms. Larson is a 66-year-old female who underwent a bilateral digital screening mammogram on 07/05/2015 which revealed no evidence of malignancy. She did have repeat bilateral digital screening mammograms on 07/10/2016 which did reveal a cluster of microcalcifications in the right breast at the 6 o'clock position. The patient was brought back for a unilateral right digital diagnostic mammogram on 07/18/2016 which confirmed a 5 mm grouping of microcalcifications in the 6 o'clock position of the right breast. The patient underwent a stereotactic guided biopsy of the right breast mass in the 6 o'clock position on 08/15/2016 which revealed ductal carcinoma in situ that was intermediate grade with focal necrosis; the tumor was estrogen receptor positive and progesterone receptor positive. The tumor measured 3 mm in the greatest dimension. The patient was referred to Dr. Moustapha Welch who did discuss treatment options including mastectomy and breast conserving therapy. The patient elected for a lumpectomy and sentinel lymph node biopsy. The patient underwent a right breast lumpectomy and sentinel lymph node biopsy on 09/24/2016 which revealed ductal carcinoma in situ that was nuclear grade 2 with comedonecrosis; the margins were negative and the closest margin was 0.15 cm. One sentinel lymph node was excised and that was negative. The patient was seen in consultation by Dr. Dariel Villa for medical oncology on 10/17/2016 and he discussed anti-hormonal therapy. The patient has been prescribed Arimidex. We are now seeing the patient in consultation discuss the role of adjuvant radiation therapy. Currently, the patient to relatively well. She denies any significant side effects from surgery. She underwent a CT simulation. She was found to be a candidate for hypo- fractionation. Radiation was completed 12/17/2016. She received 5130 cGy utilizing hypo-fractionation. (Rizwana Thomas PA-C) Interim History She's been doing well over this past month. She had minimal irritation of the skin. There was no difficulty with desquamation. She denied pain. His been no change in the axilla. The macula papular rash that she was experiencing in the upper inner portion of the breast healed without difficulty. She was seen in follow-up by Dr. Villa and is now on anastrozole. She denies any difficulty with the medication. (Rizwana Thomas PA-C) Allergies Coded Allergies: Risedronate (Verified Allergy, Severe, NUMBNESS IN HANDS, 09/24/16) Home Medications Scheduled Anastrozole (Arimidex), 1 TAB PO DAILY Aspirin (Aspir-81), 81 MG PO QPM Calcium Carbonate-Cholecalcife (Caltrate 600+D), 1 TABS PO QPM Glucosamine-Chondroitin (Glucosamine-Chondroitin D), 1 CAP PO BID Multiple Vitamin (Multiple Vitamin), 1 TAB PO QAM [place]-3 Fatty Acids (Fish Oil), 1,000 MG PO BID Rosuvastatin Calcium (Crestor), 10 MG PO QPM [Dry Eye Drops ], 1 DROP OPB QAM Scheduled PRN Acetaminophen (Tylenol Arthritis Ext Rel), 1,300 MG PO DAILY PRN for Pain Review of Systems Gastrointestinal: Symptoms: WNL Oral: Symptoms: No Problems Respiratory: Symptoms: WNL Urinary: Symptoms: WNL Skin: Symptoms: No Problems Breast: Right Upper Arm Measurement: 27.9 Right Mid Arm Measurement: 22.5 Right Wrist Measurement: 15.5 Left Upper Arm Measurement: 28.1 Left Mid Arm Measurement: 22.4 Left Wrist Measurement: 15.5 Arm Dominence: Right (Rizwana Thomas PA-C) Physical Exam Vital Signs Date Time Temp Pulse Resp B/P (MAP) Pulse Ox O2 Delivery O2 Flow Rate FiO2 01/15/17 14:57 36.9 71 16 127/85 95 Fatigue: None General Appearance: no apparent distress Eyes: normal inspection, EOMI ENT: normal ENT inspection, hearing grossly normal Neck: no adenopathy, thyroid normal Respiratory/Chest: lungs clear, no respiratory distress, no accessory muscle use Breast: Breast examination reveals well-healed incisions of the right breast. There is a slight pink discoloration to the center portion of the breast. There is no masses or tenderness and no axillary adenopathy. She has no skin retractions or nipple changes. Using the [place] score cosmesis she has a good outcome. The left breast showed no masses or tenderness no axillary adenopathy. Cardiovascular: regular rate, rhythm, no gallop, no murmur Extremities: no pedal edema Neurologic/Psychiatric: no motor/sensory deficits, alert, normal mood/affect Skin: warm/dry Lymphatic: no adenopathy (Rizwana Thomas PA-C) Laboratory Studies Test 01/09/17 12:44 White Blood Count 5.98 K/uL (4.8-10.8) Red Blood Count 4.88 M/uL (4.2-5.4) Hemoglobin 15.3 g/dL (12.0-16.0) Hematocrit 43.9 % (37-47) Mean Corpuscular Volume 90.0 fL (80-100) Mean Corpuscular Hemoglobin 31.4 pg (25-34) Mean Corpuscular Hemoglobin Concent 34.9 g/dl (32-36) Platelet Count 253 K/uL (130-400) Mean Platelet Volume 9.5 fL (7.4-10.4) Neutrophils (%) (Auto) 73.2 % Lymphocytes (%) (Auto) 17.1 % Monocytes (%) (Auto) 6.5 % Eosinophils (%) (Auto) 2.7 % Basophils (%) (Auto) 0.3 % Neutrophils # (Auto) 4.38 K/uL (1.4-6.5) Lymphocytes # (Auto) 1.02 K/uL (1.2-3.4) Monocytes # (Auto) 0.39 K/uL (0.11-0.59) Eosinophils # (Auto) 0.16 K/uL (0-0.5) Basophils # (Auto) 0.02 K/uL (0-0.2) RDW Standard Deviation 40.1 fL (36.4-46.3) RDW Coefficient of Variation 12.2 % (11.5-14.5) Immature Granulocyte % (Auto) 0.2 % Immature Granulocyte # (Auto) 0.01 K/uL (0.00-0.02) Sodium Level 139 mmol/L (136-145) Potassium Level 4.0 mmol/L (3.5-5.1) Chloride Level 106 mmol/L (98-107) Carbon Dioxide Level 28 mmol/L (21-32) Anion Gap 5.0 mmol/L (3-11) Blood Urea Nitrogen 22 mg/dl (7-18) Creatinine 0.79 mg/dl (0.60-1.20) Estimated GFR () 89.1 Estimated GFR (Non- 76.9 BUN/Creatinine Ratio 28.0 (10-20) Random Glucose 105 mg/dl (70-99) Calcium Level 10.0 mg/dl (8.5-10.1) Total Bilirubin 0.6 mg/dl (0.2-1) Aspartate Amino Transferase (AST) 23 U/L (15-37) Alanine Aminotransferase (ALT) 35 U/L (12-78) Alkaline Phosphatase 66 U/L (45-117) Lactate Dehydrogenase 245 U/L (84-246) Total Protein 7.2 gm/dl (6.4-8.2) Albumin 4.1 gm/dl (3.4-5.0) Globulin 3.1 gm/dl (2.5-4.0) Albumin/Globulin Ratio 1.3 (0.9-2) (Rizwana Thomas PA-C) Assessment & Plan Plan: The patient is also seen and examined by Dr. Morales. She'll continue follow-up with Dr. Garcia and Dr. Villa. She continues on anastrozole. Today we completed a cancer survivorship care plan. A copy of the document was given to the patient. Digital diagnostic mammograms were scheduled. The right breast will be imaged in 2 months and bilateral mammography will be in 8 months. We asked her to return to our office in 6 months. She may call if she has any questions or concerns in the interim. (Rizwana Thomas PA-C) I agree with note created by Rizwana Thomas PA-C. I reviewed the patient's chart and information with her. I have examined and evaluated the patient. I reviewed relevant clinical information and answered the patient's and/or family' s questions. (Veeral. Morales MD) Total Time In Follow-Up I spent 20 minutes speaking to the patient performing examination. I set 20 minutes reviewing information, preparing the survivorship document, and completing this note. AK (Rizwana Thomas PA-C) I spent 15 minutes examining and counseling the patient. (Veeral. Morales MD) Copy To Sharath Garcia M.D.; Moustapha Welch M.D.; Dariel Villa MD
== END | disposition home or self-care (01) ==
LOC: C.ONC 14:51
PROVIDERS: ATTEND Physician Assistant Medical
DX: Z08 Encounter for follow-up examination after completed treatment for malignant neoplasm (principal); Z92.3 Personal history of irradiation; Z85.3 Personal history of malignant neoplasm of breast

== ENCOUNTER → 2017-02-15 | Outpatient (CLI) | payer OTHER, BC ==
[2017-02-15 16:40] LABS: BASO % 0.5 %; BASO ABS # 0.03 K/uL (0-0.2); COMPLETE YES; EOS % 2.9 %; HEMATOCRIT 43.1 % (37-47); IG% 0.3 %; LYMPH % 15.5 %; LYMPH ABS # 1.03 K/uL (1.2-3.4); MEAN CELL VOLUME 91.9 fL (80-100); MEAN CORPUSCULAR HEMOGLOBIN 31.3 pg (25-34); MEAN CORPUSCULAR HGB CONC 34.1 g/dl (32-36); MEAN PLATELET VOLUME 9.6 fL (7.4-10.4); MONO % 9.2 %; NEUT % 71.6 %; PLATELET COUNT 270 K/uL (130-400); RED BLOOD COUNT 4.69 M/uL (4.2-5.4); WHITE BLOOD COUNT 6.66 K/uL (4.8-10.8)
[2017-02-15 16:47] LABS: ALT/SGPT 33 U/L (12-78); BLOOD UREA NITROGEN 26 mg/dl (7-18); BUN/CREATININE RATIO 32.8 (10-20); CALCIUM 9.8 mg/dl (8.5-10.1); CARBON DIOXIDE 27 mmol/L (21-32); CHLORIDE 107 mmol/L (98-107); CHOLESTEROL 141 mg/dl (0-200); CREATININE 0.79 mg/dl (0.60-1.20); GLUCOSE 97 mg/dl (70-99); POTASSIUM 4.4 mmol/L (3.5-5.1); SODIUM 139 mmol/L (136-145)
[2017-02-15 16:58] LABS: ALB/GLOB RATIO 1.2 (0.9-2); ALKALINE PHOSPHATASE 67 U/L (45-117); AST/SGOT 24 U/L (15-37); CHOLESTEROL/HDL RATIO 1.9; HDL CHOLESTEROL 74 mg/dl; LDL CHOLESTEROL CALCULATED 42 mg/dl; TRIGLYCERIDES 125 mg/dl (0-150); VERY LOW DENSITY LIPOPROT CALC 25 mg/dl
== END | disposition home or self-care (01) ==
LOC: C.LABBC 13:13
PROVIDERS: ATTEND Physician Assistant Medical
DX: R73.9 Hyperglycemia, unspecified (principal); E78.5 Hyperlipidemia, unspecified

== ENCOUNTER → 2017-03-04 | Outpatient (CLI) | payer OTHER, BC | END | disposition home or self-care (01) | LOC: C.PAPS 18:09 | PROVIDERS: ATTEND Physician Assistant Medical | DX: Z12.4 Encounter for screening for malignant neoplasm of cervix (principal) ==

== ENCOUNTER → 2017-04-01 | Outpatient (CLI) | payer OTHER, BC ==
--- NOTE | 2017-04-01 13:34 | MAMMOGRAPHY REPORT ---
UNILATERAL RIGHT DIGITAL DIAGNOSTIC MAMMOGRAM TOMOSYNTHESIS WITH CAD: 04/01/2017 CLINICAL HISTORY: 66-year-old woman presents for diagnostic evaluation of the right breast to [facility] after treatment for right breast cancer with lumpectomy and radiation performed in 2016. TECHNIQUE: Right CC and MLO 2-D and tomosynthesis images, spot magnification right CC and ML views w ere obtained. Current study was also evaluated with a Computer Aided Detection (CAD) system. COMPARISON: Comparison is made to exams dated: 07/18/2016 mammogram, 07/10/2016 mammogram, 07/05/2015 ma mmogram, 07/01/2014 mammogram, 06/30/2013 mammogram, and 06/26/2012 mammogram - [facility] nter. BREAST COMPOSITION: The tissue of the right breast is heterogeneously dense, which may obscure small masses. FINDINGS: Linear scar markers overlie the superior and inferior right breast. There is expected arch itectural distortion in 2 surgical clips in the central right breast, at the site of prior lumpectomy . There is mild diffuse trabecular edema and skin thickening, likely related to prior treatment. No new suspicious mass, unexpected architectural distortion or suspicious microcalcifications are ident ified. IMPRESSION: ACR-BI-RADS CATEGORY 3: PROBABLY BENIGN Expected post treatment changes in the right breast, without definite mammographic evidence of malign junie. Recommend another close follow-up diagnostic evaluation of the right breast in 6 months to ens ure stability after treatment. Annual left mammography will also be due at that time. These results and recommendations were discussed with the patient at the time of the exam. Follow-up mammogram and an ultrasound in 6 months is recommended to demonstrate stability. The patient has be en melia Approximately 10% of breast cancers are not detected with mammography. A negative mammographic report should not delay biopsy if a clinically suggestive mass is present. Whitney Sewell M.D. 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
== END | disposition home or self-care (01) ==
LOC: C.MAMM 09:42
PROVIDERS: ATTEND Physician Assistant Medical
DX: D05.11 Intraductal carcinoma in situ of right breast (principal)

== ENCOUNTER → 2017-07-18 | Outpatient (CLI) | payer OTHER, BC ==
[~2017-07-18] MED LIST changes: +B-CO-25 PO
[2017-07-18 13:07] VITALS: BP 128/83; PULSE 63; TEMP 36.6; O2SAT 96
--- NOTE | 2017-07-18 15:25 | Radiation Oncology Follow-Up ---
Radiation Oncology Follow-Up Date of Visit Jul 18, 2017. Reason For Visit 6 month follow-up Radiation Completion Date Hypo - 12/17/16 Diagnosis (1) Ductal carcinoma in situ (DCIS) of right breast Status: Resolved Stage: 0 Permanent Comment: Abnormal right breast mammogram 07/10/2016 revealing calcifications Status post stereotactic biopsy 08/15/2016 DCIS grade 2 Estrogen receptor positive and progesterone receptor positive Status post partial mastectomy and sentinel lymph node biopsy 09/24/2016 Stage pTis [id number] Status post completion of radiation therapy 12/17/2016. She received 5130 cGy utilizing hypo-fractionation. Last Edited By: Rizwana Thomas on Dec 31, 2016 10:43 History of Present Illness Ms. Larsno underwent a bilateral digital screening mammogram on 07/05/2015 which revealed no evidence of malignancy. She did have repeat bilateral digital screening mammograms on 07/10/2016 which did reveal a cluster of microcalcifications in the right breast at the 6 o'clock position. The patient was brought back for a unilateral right digital diagnostic mammogram on 2016 which confirmed a 5 mm grouping of microcalcifications in the 6 o'clock position of the right breast. The patient underwent a stereotactic guided biopsy of the right breast mass in the 6 o'clock position on 08/15/2016 which revealed ductal carcinoma in situ that was intermediate grade with focal necrosis; the tumor was estrogen receptor positive and progesterone receptor positive. The tumor measured 3 mm in the greatest dimension. The patient was referred to Dr. Moustapha Welch who did discuss treatment options including mastectomy and breast conserving therapy. The patient elected for a lumpectomy and sentinel lymph node biopsy. The patient underwent a right breast lumpectomy and sentinel lymph node biopsy on 09/24/2016 which revealed ductal carcinoma in situ that was nuclear grade 2 with comedonecrosis; the margins were negative and the closest margin was 0.15 cm. One sentinel lymph node was excised and that was negative. The patient was seen in consultation by Dr. Dariel Villa for medical oncology on 10/17/2016 and he discussed anti-hormonal therapy. The patient has been prescribed Arimidex. We are now seeing the patient in consultation discuss the role of adjuvant radiation therapy. Currently, the patient to relatively well. She denies any significant side effects from surgery. She underwent a CT simulation. She was found to be a candidate for hypo- fractionation. Radiation was completed 12/17/2016. She received 5130 cGy utilizing hypo-fractionation Interim History She's been doing well over the past 6 months. She denies any changes to her breast. She's noted no masses. She has a mild "aching discomfort" in the area of the axilla. She noticed this will occur with stretching her arm up over her head. She had the pain level I. This does not require any cgjd-bme-zfmveim or prescriptive pain medications. She hasn't resumed her usual activities and is back to doing Zometa. She does restrict the weight amount 23 pounds. She feels that there is some thickness of the skin on the right side compared to the left. She is up-to-date on mammography. Allergies Coded Allergies: Risedronate (Verified Allergy, Severe, NUMBNESS IN HANDS, 09/24/16) Home Medications Scheduled Anastrozole (Arimidex), 1 TAB PO DAILY Aspirin (Aspir-81), 81 MG PO QPM B-Complex W/ Folic Acid (Super B Complex Maxi), 1 TAB PO DAILY Calcium Carbonate-Cholecalcife (Caltrate 600+D), 1 TABS PO QPM Glucosamine-Chondroitin (Glucosamine-Chondroitin D), 1 CAP PO BID Multiple Vitamin (Multiple Vitamin), 1 TAB PO QAM Kingman-3 Fatty Acids (Fish Oil), 1,000 MG PO BID Rosuvastatin Calcium (Crestor), 10 MG PO QPM [Dry Eye Drops ], 1 DROP OPB QAM Scheduled PRN Acetaminophen (Tylenol Arthritis Ext Rel), 1,300 MG PO DAILY PRN for Pain Review of Systems Gastrointestinal: Symptoms: WNL Oral: Symptoms: No Problems Respiratory: Symptoms: WNL Urinary: Symptoms: WNL Skin: Symptoms: No Problems Breast: Right Upper Arm Measurement: 28.5 Right Mid Arm Measurement: 22.7 Right Wrist Measurement: 15.8 Left Upper Arm Measurement: 29.5 Left Mid Arm Measurement: 22.0 Left Wrist Measurement: 15.4 Arm Dominence: Right Physical Exam Vital Signs Date Time Temp Pulse Resp B/P (MAP) Pulse Ox O2 Delivery O2 Flow Rate FiO2 07/18/17 13:07 36.6 63 16 128/83 96 Fatigue: None General Appearance: no apparent distress Eyes: normal inspection, EOMI ENT: normal ENT inspection, hearing grossly normal Neck: no adenopathy, thyroid normal Respiratory/Chest: lungs clear, no respiratory distress, no accessory muscle use Breast: There are well-healed incisions on the right breast. There are no masses or tenderness and no axillary adenopathy. She has no skin retractions or nipple changes. Using the Brussels score cosmesis she has a excellent outcome. Left breast showed no masses or tenderness and no axillary adenopathy. Cardiovascular: regular rate, rhythm, no gallop, no murmur Neurologic/Psychiatric: no motor/sensory deficits, alert, normal mood/affect Skin: warm/dry Pain Management Patient Reports Pain: Yes Initial Pain Intensity: 1 Pain Management Plan This some mild discomfort of the axilla. It's not require any rdfz-qfd-sdhmvpm or prescriptive pain medications. She does not require any pain management. Laboratory Laboratory Results: not applicable Pathology Pathology Results: not applicable Imaging Imaging Studies: were reviewed, and pertinent findings noted below Imaging Comments Patient: ZAKIYA LARSON [facility] Rec: [id number] Address1: [address] [place] [address] Address2: [facility] ID: [id number] Date: 1950 Sex: F Ref Phy: Rizwana Thomas PA-C Att Phy: Rizwana Thomas PA-C Mariam Phy: Sharath Garcia M.D. Inter Phy: Whitney Sewell MD [facility] Zip: [place] [address] SC: [id number] Report #: [id number] Flatwork Finisher Hand: [email or web address] Diagnosis: RIGHT BREAST CA Service Date: 04/01/17 MNE: [id number] Ordering Dr: Rizwana Thomas PA-C CC: Rizwana Thomas PA-C CONF: DICTATED BY: Whitney Sewell MD MAMMOGRAPHY REPORT UNILATERAL RIGHT DIGITAL DIAGNOSTIC MAMMOGRAM TOMOSYNTHESIS WITH CAD: 04/01/2017 CLINICAL HISTORY: 66-year-old woman presents for diagnostic evaluation of the right breast to establish new baseline after treatment for right breast cancer with lumpectomy and radiation performed in September 2016. TECHNIQUE: Right CC and MLO 2-D and tomosynthesis images, spot magnification right CC and ML views were obtained. Current study was also evaluated with a Computer Aided Detection (CAD) system. COMPARISON: Comparison is made to exams dated: 07/18/2016 mammogram, 07/10/2016 mammogram, 07/05/2015 mammogram, 07/01/2014 mammogram, 06/30/2013 mammogram, and 03/2013 mammogram - [facility]. BREAST COMPOSITION: The tissue of the right breast is heterogeneously dense, which may obscure small masses. FINDINGS: Linear scar markers overlie the superior and inferior right breast. There is expected architectural distortion in 2 surgical clips in the central right breast, at the site of prior lumpectomy. There is mild diffuse trabecular edema and skin thickening, likely related to prior treatment. No new suspicious mass, unexpected architectural distortion or suspicious microcalcifications are identified. IMPRESSION: ACR-BI-RADS CATEGORY 3: PROBABLY BENIGN Expected post treatment changes in the right breast, without definite mammographic evidence of malignancy. Recommend another close follow-up diagnostic evaluation of the right breast in 6 months to ensure stability after treatment. Annual left mammography will also be due at that time. These results and recommendations were discussed with the patient at the time of the exam. Follow-up mammogram and an ultrasound in 6 months is recommended to demonstrate stability. The patient has been melia Approximately 10% of breast cancers are not detected with mammography. A negative mammographic report should not delay biopsy if a clinically suggestive mass is present. Whitney Sewell M.D. ay/:04/01/2017 10:15:05 Pit Worker Power Shovel: Coretta PELAYO)(Jeff), [facility] letter sent: Follow Up Recommended 3 BI-RADS Code: ACR-BI-RADS Category 3: Probably Benign Dictated by: Whitney Sewell MD Signed by: Whitney Sewell MD Assessment & Plan Plan: The patient is seen and examined by Dr. Morales. She is scheduled for bilateral mammography in September. She continues regular follow-up with her primary care physician and Dr. Villa. She continues on Arimidex. We discussed stretching exercises to help with the occasional discomfort in the axilla. We asked her to return to our office in 1 year. She may call if she has any questions or concerns in the interim. Assessment & Plan (Attending) I agree with note created by Rizwana Thomas PA-C. I reviewed the patient's chart and information with her. I have examined and evaluated the patient. I reviewed relevant clinical information and answered the patient's and/or family' s questions. PRESS HAND SUPERVISOR Total Time In Follow-Up I spent 20 minutes speaking to the patient and performing examination. I spent 15 minutes reviewing information completing this note. AK Total Time (Attending) In Follow-Up I spent 15 minutes examining and counseling the patient. PRESS HAND SUPERVISOR Copy To Sharath Garcia M.D.; Dariel Villa MD
== END | disposition home or self-care (01) ==
LOC: C.ONC 12:21
PROVIDERS: ATTEND Physician Assistant Medical
DX: Z08 Encounter for follow-up examination after completed treatment for malignant neoplasm (principal); Z92.3 Personal history of irradiation; Z85.3 Personal history of malignant neoplasm of breast

== ENCOUNTER → 2017-09-30 | Outpatient (CLI) | payer OTHER, BC ==
--- NOTE | 2017-10-01 07:47 | MAMMOGRAPHY REPORT ---
BILATERAL DIGITAL DIAGNOSTIC MAMMOGRAM TOMOSYNTHESIS WITH CAD: 09/30/2017 CLINICAL HISTORY: 67-year-old woman with a personal history of right breast DCIS status post lumpecto my performed September 2016, presents for close follow-up in the right breast after treatment. Also due for annual left mammography. TECHNIQUE: Bilateral breast tomosynthesis in addition to standard 2D mammography was performed. Spo t magnification right CC and ML views were also obtained over the surgical site. Current study was a lso evaluated with a Computer Aided Detection (CAD) system. COMPARISON: Comparison is made to exams dated: 04/01/2017 mammogram, 08/15/2016 mammogram, 07/18/2016 ma mmogram, 07/10/2016 mammogram, 07/05/2015 mammogram, and 07/01/2014 mammogram - [facility] nt. BREAST COMPOSITION: There are scattered areas of fibroglandular density in both breasts. FINDINGS: A linear scar marker overlies the 12:00 left breast. In the right breast at 6:00 versus th e central breast. There are 2 stable surgical clips. There is also mild diffuse skin thickening and trabecular edema of the right breast, likely due to prior treatment. The spot magnification views d emonstrate approximately 1-2 punctate calcifications posterior to the surgical clips, which were not definitely identified on the prior spot magnification views although this could be technical due to p ositioning. The most likely represent benign fat necrosis/postsurgical change but another close foll ow-up right diagnostic mammogram including spot magnification views is recommended to ensure stabilit y in 6 months. No new suspicious mass, asymmetries, unexpected architectural distortion or other melissa rocalcifications are identified bilaterally. IMPRESSION: ACR-BI-RADS CATEGORY 3: PROBABLY BENIGN Expected posttreatment changes in the right breast, without definite mammographic evidence of maligna ncy. Another six-month follow-up right diagnostic mammogram including repeat spot magnification view s is recommended to ensure longer stability after treatment. These results and recommendations were discussed with the patient at the time of the exam. She tenta tively scheduled a follow-up appointment prior to leaving our department. Approximately 10% of breast cancers are not detected with mammography. A negative mammographic report should not delay biopsy if a clinically suggestive mass is present. Whitney Sewell M.D. ay/:09/30/2017 11:26:32 Section Laborer: Kindra GANN(R)(M), [facility] letter sent: Follow Up Recommended 3 BI-RADS Code: ACR-BI-RADS Category 3: Probably Benign
== END | disposition home or self-care (01) ==
LOC: C.MAMM 10:42
PROVIDERS: ATTEND Physician Assistant Medical
DX: Z85.3 Personal history of malignant neoplasm of breast (principal); Z08 Encounter for follow-up examination after completed treatment for malignant neoplasm